=== PATIENT | male | born 1960 | race Caucasian/White ===

== ENCOUNTER 2017-05-06 07:41 | Emergency (ER) | payer MEDICARE ==
[~2017-05-06] VITALS: Ht 172.7 cm; Wt 140.6 kg
[~2017-05-06 07:41] MED LIST: ACET325T9 PO; ASCO500T2 PO; ASPI-482 PO; BUPR150T15 PO; CHOL10003 PO; CRESTOR10 MG PO; DIVA500T2 PO; DOCU-109 PO; GARL2000 PO; HYDR-2766 PO; IBUP200T43 PO; INSU100I13 SQ; INSU100V11 IJ; LOSA25TA4 PO; MECL25TA PO; METF-620 PO; METO-239 PO; MULT-246 PO; NIAC500T PO; NITR0.4T SL; OMEG10006 PO; POLY17PO29 PO; POTASSIUM CHLO10 MEQ PO; SPIR1TAB3 PO; TORS20TA PO; VENTOLIN HFA18 GM INH; [UNRECOGNIZED DRUG - CODE] MC
[2017-05-06 08:48] LABS: BILIRUBIN,URINE NEGATIVE (NEG); GLUCOSE,URINE NEGATIVE (NEG); NITRITE,URINE NEGATIVE (NEG); PH,URINE 5.5; PROTEIN,URINE NEGATIVE (NEG-TRACE); UROBILINOGEN,URINE 0.2 mg/dL (0.2 mg/dL)
[2017-05-06 08:57] LABS: BACTERIA,URINE 0 /HPF (0-FEW); RBC,URINE OCC /HPF (0-2); SQUAMOUS EPITHELIAL CELL,UR OCC /LPF; WBC,URINE OCC /HPF (0-4)
[2017-05-06 09:30] LABS: BASO % 0 % (0-3); EOS % 1 % (0-3); HEMOGLOBIN 14.8 g/dL (13.0-17.5); LYMPH # 2.5 x10^3/uL (1.0-4.8); LYMPH % 30 % (24-48); MEAN CORPUSCULAR HEMOGLOBIN 31 pg (25-35); MEAN CORPUSCULAR HGB CONC 35 g/dL (31-37); MEAN CORPUSCULAR VOLUME 88 fL (79-100); MONO % 10 % (0-9); NEUT % 58 % (31-73); PLATELET COUNT 286 x10^3/uL (140-400); RED CELL DISTRIBUTION WIDTH 13.5 % (11.5-14.5); WHITE BLOOD COUNT 8.2 x10^3/uL (4.0-11.0)
[2017-05-06 09:42] LABS: CALCIUM 8.3 mg/dL (8.5-10.1); CREATININE 0.8 mg/dL (0.7-1.3); GFR 98.9; POTASSIUM 3.7 mmol/L (3.5-5.1)
[2017-05-06 09:47] LABS: ALBUMIN 3.4 g/dL (3.4-5.0); TOTAL BILIRUBIN 0.3 mg/dL (0.2-1.0); TOTAL PROTEIN 6.8 g/dL (6.4-8.2)
[2017-05-06 09:52] VITALS: BP 134/76
--- NOTE | 2017-05-06 10:13 | PHYS DOC ---
Past Medical History Past Medical History: Diabetes-Type II, Hypertension, [place], Stroke, Other Additional Past Medical Histor: NEUROPATHY, PACEMAKER Past Surgical History: Coronary Bypass Surgery, Other Additional Past Surgical Histo: HERNIA, BACK SURGERY, LEFT FOOT SURGERY Alcohol Use: None Drug Use: None Adult General Chief Complaint Chief Complaint: URINARY FREQUENCY HPI HPI Patient is a 57 year old male who presents ambulatory to the ED with multiple complaints. He feels like he has been running to the bathroom every 5 minutes to urinate but only has a small amount. He has had a dry mouth. He has felt weak. He had a headache didn't take anything for it. He's had no vomiting. No fever or chills. He didn't take his morning medications today because he didn't know whether we would want him to. He did take his insulin last night. Patient has not had chronic problems with UTI. He thinks he had one a long time ago. Patient is diabetic but his blood sugar was just over 100 on arrival. Review of Systems Review of Systems Constitutional: Denies fever or chills [] Eyes: Denies change in visual acuity, redness, or eye pain [] HENT: Denies nasal congestion or sore throat Respiratory: Denies cough or shortness of breath [] Cardiovascular: Denies chest pain GI: Denies abdominal pain, nausea, vomiting, bloody stools or diarrhea [] : As in history of present illness Musculoskeletal: Denies back pain or joint pain [] Integument: Denies rash or skin lesions [] Neurologic: Denies headache, focal weakness or sensory changes [] Endocrine: Complains of dry mouth and polyuria Allergies Allergies Allergies Coded Allergies Type Severity Reaction Last Updated Verified No Known Drug Allergies 04/30/14 No Physical Exam Physical Exam Constitutional: Obese, unkempt 57-year-old male who is alert and appropriate, warm and dry HENT: Normocephalic, atraumatic, bilateral external ears normal, nose normal. [ ] Eyes: conjunctiva normal, no discharge. [] Neck: Normal range of motion, no stridor. [] Cardiovascular:Heart rate regular rhythm, no murmur [] Lungs & Thorax: Bilateral breath sounds clear to auscultation [] Abdomen: Bowel sounds normal, soft, no tenderness, no masses, no pulsatile masses. [] Skin: Warm, dry, no erythema, no rash. [] Back: No tenderness, no CVA tenderness. [] Extremities: No tenderness, no cyanosis, no clubbing, ROM intact, no edema. [] Neurologic: Alert and oriented X 3, normal motor function, normal sensory function, no focal deficits noted. [] Current Patient Data Vital Signs Vital Signs Date Time Temp Pulse Resp B/P (MAP) Pulse Ox O2 Delivery O2 Flow Rate FiO2 05/06/17 09:52 60 134/76 (95) 97 Room Air 05/06/17 09:22 17 05/06/17 07:50 98.1 98.1 Lab Values Laboratory Tests Test 05/06/17 08:10 05/06/17 08:35 05/06/17 09:20 Glucose (Fingerstick) 110 mg/dL (70-99) H Urine Collection Type Unknown Urine Color Yellow Urine Clarity Clear Urine pH 5.5 Urine Specific [place] 1.010 Urine Protein Negative mg/dL (NEG-TRACE) Urine Glucose (UA) Negative mg/dL (NEG) Urine Ketones (Stick) Negative mg/dL (NEG) Urine Blood Negative (NEG) Urine Nitrite Negative (NEG) Urine Bilirubin Negative (NEG) Urine Urobilinogen Dipstick 0.2 mg/dL (0.2 mg/dL) Urine Leukocyte Esterase Negative (NEG) Urine RBC Occ /HPF (0-2) Urine WBC Occ /HPF (0-4) Urine Squamous Epithelial Cells Occ /LPF Urine Bacteria 0 /HPF (0-FEW) Urine Mucus Slight /LPF White Blood Count 8.2 x10^3/uL (4.0-11.0) Red Blood Count 4.80 x10^6/uL (4.30-5.70) Hemoglobin 14.8 g/dL (13.0-17.5) Hematocrit 42.0 % (39.0-53.0) Mean Corpuscular Volume 88 fL (79-100) Mean Corpuscular Hemoglobin 31 pg (25-35) Mean Corpuscular Hemoglobin Concent 35 g/dL (31-37) Red Cell Distribution Width 13.5 % (11.5-14.5) Platelet Count 286 x10^3/uL (140-400) Neutrophils (%) (Auto) 58 % (31-73) Lymphocytes (%) (Auto) 30 % (24-48) Monocytes (%) (Auto) 10 % (0-9) H Eosinophils (%) (Auto) 1 % (0-3) Basophils (%) (Auto) 0 % (0-3) Neutrophils # (Auto) 4.8 x10^3uL (1.8-7.7) Lymphocytes # (Auto) 2.5 x10^3/uL (1.0-4.8) Monocytes # (Auto) 0.8 x10^3/uL (0.0-1.1) Eosinophils # (Auto) 0.1 x10^3/uL (0.0-0.7) Basophils # (Auto) 0.0 x10^3/uL (0.0-0.2) Sodium Level 140 mmol/L (136-145) Potassium Level 3.7 mmol/L (3.5-5.1) Chloride Level 101 mmol/L (98-107) Carbon Dioxide Level 30 mmol/L (21-32) Anion Gap 9 (6-14) Blood Urea Nitrogen 11 mg/dL (8-26) Creatinine 0.8 mg/dL (0.7-1.3) Estimated GFR (Cockcroft-Gault) 98.9 BUN/Creatinine Ratio 14 (6-20) Glucose Level 108 mg/dL (70-99) H Calcium Level 8.3 mg/dL (8.5-10.1) L Total Bilirubin 0.3 mg/dL (0.2-1.0) Aspartate Amino Transferase (AST) 16 U/L (15-37) Alanine Aminotransferase (ALT) 56 U/L (16-63) Alkaline Phosphatase 48 U/L (46-116) Total Protein 6.8 g/dL (6.4-8.2) Albumin 3.4 g/dL (3.4-5.0) Albumin/Globulin Ratio 1.0 (1.0-1.7) Laboratory Tests 05/06/17 09:20 Laboratory Tests 05/06/17 09:20 EKG EKG [] Radiology/Procedures Radiology/Procedures [] Course & Med Decision Making Course & Med Decision Making Pertinent Labs and Imaging studies reviewed. (See chart for details) 57-year-old male presents with the complaints of urinary frequency and dry mouth , he is a diabetic, however his blood sugar is normal here today. Labs, urinalysis unrevealing as to the cause of his complaints. I discussed with the patient that we are not finding any serious cause of his symptoms and I like to him to continue his medication as ordered. He is agreeable to discharge. See instructions for plan. [] Dragon Disclaimer Dragon Disclaimer This electronic medical record was generated, in whole or in part, using a voice recognition dictation system. Departure Departure Impression: Primary Impression: Urinary frequency Disposition: HOME, SELF-CARE Condition: STABLE Referrals: NIRANJAN PARMAR R[facility] AND [employer]ST ANALYST (PCP) Additional Instructions: Today, urine test did not show any infection and blood tests were normal. Continue to take your prescribed medications. Drink plenty of fluids. If your symptoms continue, see your primary care doctor for recheck. JEWEL SANTOS MD May 06, 2017 10:13
== END 2017-05-06 10:18 | disposition home or self-care (01) ==
LOC: ER 07:41
DX: R35.0 Frequency of micturition (principal); R68.2 Dry mouth, unspecified; E66.9 Obesity, unspecified; R53.1 Weakness; R51 Headache; E11.40 Type 2 diabetes mellitus with diabetic neuropathy, unspecified; I25.2 Old myocardial infarction; I10 Essential (primary) hypertension; Z95.1 Presence of aortocoronary bypass graft; Z79.4 Long term (current) use of insulin; Z95.0 Presence of cardiac pacemaker; Z68.1 Body mass index [BMI] 19.9 or less, adult; Z86.73 Personal history of transient ischemic attack (TIA), and cerebral infarction without residual deficits
CPT/HCPCS: 36415; 80053; 81001; 82962; 85025; 99284

== ENCOUNTER 2019-04-09 13:21 | Emergency (ER) | payer MEDICARE, OTHER ==
[~2019-04-09] VITALS: Ht 175.3 cm; Wt 139.3 kg
[~2019-04-09 13:21] MED LIST changes: -HYDR-2766 PO; +HYDR-2769 PO; -IBUP200T43 PO; +IBUP200T44 PO; -LOSA25TA4 PO; +LOSA25TA54 PO; -METF-620 PO; +METF10007 PO; +POTA10TA12 PO; -POTASSIUM CHLO10 MEQ PO
--- NOTE | 2019-04-09 14:35 | NUR ---
Pt requesting/received urinal.
--- NOTE | 2019-04-09 15:23 | RAD ---
AP view of the pelvis and two-view study right hip Clinical indications: Right hip pain for one week. FINDINGS: Hip joints are symmetric. No significant arthritic change is evident. No acute fracture or dislocation or lytic process evident. No diastases of the symphysis pubis or either SI joint is seen. IMPRESSION: No significant osseous abnormality. Electronically signed by: Gaudencio Richter MD (04/09/2019 3:20 PM) [id number]
[2019-04-09] MEDS ORDERED: KETOROLAC 60 MG/2 ML VIAL. IM ONE (16:15)
[2019-04-09] MEDS ORDERED: methylPREDNISolone SOD SUCC PF 125 MG/2 ML VIAL. IM ONE (16:45)
[2019-04-09] MEDS ORDERED: PRED20TA PO (16:56)
[2019-04-09] MEDS ORDERED: TRAM50TA PO (16:56)
--- NOTE | 2019-04-09 16:57 | PHYS DOC ---
Past Medical History Past Medical History: CVA, Diabetes-Type II, High Cholesterol, Hypertension, [place], Stroke, Other Additional Past Medical Histor: NEUROPATHY Past Surgical History: Coronary Bypass Surgery, Pacemaker, Other Additional Past Surgical Histo: HERNIA, BACK SURGERY, LEFT FOOT SURGERY, CARPAL TUNNEL, NECK Alcohol Use: None Drug Use: None Adult General Chief Complaint Chief Complaint: HIP PAIN HPI HPI Patient is a 58 year old male presented ER today for evaluation of right hip pain, radiating to his right knee. Patient said the pain worse when he sat on his buttock. Patient said he was trying to pull some grasses of the ground about a week ago then later having pain then. Denied any trauma. Milka denies any bowel or bladder incontinence. He denies any fever, no back pain. Review of Systems Review of Systems Constitutional: Denies fever or chills [] Eyes: Denies change in visual acuity, redness, or eye pain [] HENT: Denies nasal congestion or sore throat [] Respiratory: Denies cough or shortness of breath [] Cardiovascular: No additional information not addressed in HPI [] GI: Denies abdominal pain, nausea, vomiting, bloody stools or diarrhea [] : Denies dysuria or hematuria [] Musculoskeletal: Denies back pain, POSITIVE FOR RIGHT SIDE HIP PAIN Integument: Denies rash or skin lesions [] Neurologic: Denies headache, focal weakness or sensory changes [] Endocrine: Denies polyuria or polydipsia [] All other systems were reviewed and found to be within normal limits, except as documented in this note. Current Medications Current Medications Current Medications Medications (Trade) Dose Ordered Sig/[facility] Start Time Stop Time Status Last Admin Dose Admin Ketorolac Tromethamine (Toradol Im) 60 mg 1X ONCE 04/09/19 16:15 04/09/19 16:16 DC 04/09/19 16:20 60 MG Methylprednisolone Sodium Succinate (SOLU-Medrol 125MG VIAL) 125 mg 1X ONCE 04/09/19 16:45 04/09/19 16:46 DC 04/09/19 16:21 125 MG Allergies Allergies Allergies Coded Allergies Type Severity Reaction Last Updated Verified No Known Drug Allergies 04/30/14 No Physical Exam Physical Exam Constitutional: Well developed, well nourished, no acute distress, non-toxic appearance. [] HENT: Normocephalic, atraumatic, bilateral external ears normal, nose normal. [] Eyes: PERRLA, EOMI, conjunctiva normal, no discharge. [] Neck: Normal range of motion, no tenderness, supple, no stridor. [] Cardiovascular:Heart rate regular rhythm, no murmur [] Abdomen: Bowel sounds normal, soft, no tenderness, no masses, no pulsatile masses. [] Skin: Warm, dry, no erythema, no rash. [] Back: No tenderness, no CVA tenderness. [] Extremities: No tenderness, no cyanosis, no clubbing, ROM intact, no edema. [] Neurologic: Alert and oriented X 3, normal motor function, normal sensory function, no focal deficits noted. [] Psychologic: Affect normal, judgement normal, mood normal. [] Current Patient Data Vital Signs Vital Signs Date Time Temp Pulse Resp B/P (MAP) Pulse Ox O2 Delivery O2 Flow Rate FiO2 04/09/19 14:26 98.4 60 20 135/63 (87) 97 Room Air 98.4 EKG EKG [] Radiology/Procedures Radiology/Procedures [][facility] [address] [place] [address] IMAGING REPORT Signed PATIENT: JANESSA MCDOWELL ACCOUNT: [id number] : 1960 LOCATION: ER AGE: 58 SEX: M EXAM STATUS: REG ER ORD. PHYSICIAN: WILIAN ALFARO DO REASON: rt hip pain for 1 wk, PT unable to handle laying, images done upright PROCEDURE: HIP RIGHT 2V WITH PELVIS AP view of the pelvis and two-view study right hip Clinical indications: Right hip pain for one week. FINDINGS: Hip joints are symmetric. No significant arthritic change is evident. No acute fracture or dislocation or lytic process evident. No diastases of the symphysis pubis or either SI joint is seen. IMPRESSION: No significant osseous abnormality. Electronically signed by: Carolyn Richter MD (04/09/2019 3:20 PM) [facility] DICTATED and SIGNED BY: CAROLYN RICHTER MD DATE: 04/09/19 7600 Course & Med Decision Making Course & Med Decision Making Pertinent Labs and Imaging studies reviewed. (See chart for details) [] Dragon Disclaimer Dragon Disclaimer This electronic medical record was generated, in whole or in part, using a voice recognition dictation system. Departure Departure Impression: Primary Impression: Acute sciatica Disposition: HOME, SELF-CARE Condition: STABLE Referrals: PAULINO JOY MD (PCP) FOLLOW UP WITH YOUR DOCTOR FOR REEVALUATION NEXT SUNDAY Patient Instructions: Sciatica with Rehab-SportsMed Scripts Prednisone (PREDNISONE) 20 Mg Tablet 1 TAB PO DAILY, #7 TAB Prov: WILIAN ALFARO DO 04/09/19 Tramadol Hcl (TRAMADOL HCL) 50 Mg Tablet 50 MG PO Q6HRS PRN for PAIN, #20 TAB Prov: WILIAN ALFARO DO 04/09/19 WILIAN ALFARO DO Apr 09, 2019 16:56
[2019-04-09 17:19] VITALS: BP 125/72
== END 2019-04-09 17:25 | disposition home or self-care (01) ==
LOC: ER 13:21
DX: M54.31 Sciatica, right side (principal); M25.551 Pain in right hip; M25.561 Pain in right knee; E11.40 Type 2 diabetes mellitus with diabetic neuropathy, unspecified; E78.00 Pure hypercholesterolemia, unspecified; I10 Essential (primary) hypertension; I25.2 Old myocardial infarction; Z86.73 Personal history of transient ischemic attack (TIA), and cerebral infarction without residual deficits; Z95.1 Presence of aortocoronary bypass graft; Z95.0 Presence of cardiac pacemaker; Z98.890 Other specified postprocedural states
CPT/HCPCS: 73502; 96372; 99284; J1885; J2930

== ENCOUNTER 2019-12-22 18:54 | Emergency (ER) | payer MEDICARE, OTHER ==
[~2019-12-22] VITALS: Ht 172.7 cm; Wt 139.0 kg
[~2019-12-22 18:54] MED LIST changes: -NITR0.4T SL; +NITR0.4T24 SL; +PRED20TA PO; +TRAM50TA PO
[2019-12-22 19:55] VITALS: BP 132/59
--- NOTE | 2019-12-22 20:20 | RAD ---
Three-view right shoulder radiographs 12/22/2019 CLINICAL HISTORY: Injury to the right shoulder after lifting trash 3 days ago. AP internal and external rotation and transscapular digital radiographs of the right shoulder were obtained. A pacemaker overlies the right anterior chest. Moderate to severe degenerative changes are seen involving the right glenohumeral joint. Moderate degenerative changes are seen involving the right AC joint. No fracture or dislocation is seen. The patient is post median sternotomy. IMPRESSION: Degenerative changes are seen involving the right shoulder as discussed above. No acute osseous abnormality is seen. Electronically signed by: Travis Downing MD (12/22/2019 8:17 PM) [id number]
[2019-12-22] MEDS ORDERED: DICL100G18 TP (20:32)
[2019-12-22] MEDS ORDERED: METH4TAB2 PO (20:32)
[2019-12-22] MEDS ORDERED: CYCL10TA2 PO (20:32)
--- NOTE | 2019-12-22 20:32 | PHYS DOC ---
Past Medical History Past Medical History: CVA, Diabetes-Type II, High Cholesterol, Hypertension, [place], Stroke, Other Additional Past Medical Histor: NEUROPATHY (EDE HARRIS APRN) Past Surgical History: Coronary Bypass Surgery, Pacemaker, Other Additional Past Surgical Histo: HERNIA, BACK SURGERY, LEFT FOOT SURGERY, CARPAL TUNNEL, NECK (EDE HARRIS APRN) Smoking Status: Former Smoker Alcohol Use: None Drug Use: None (EDE HARRIS APRN) Attending Signature I have participated in the care of this patient and I have reviewed and agree with all pertinent clinical information above including history, exam, and recommendations. (MACI SANCHEZ MD) Adult General Chief Complaint Chief Complaint: SHOULDER INJURY HPI HPI Patient is a 59 year old medical presents with 5 out of 10 sharp intermittent right shoulder pain, symptoms began 4 days ago, he reports he was lifting heavy trash when pain began. Patient reports symptoms are worse on range of motion. (EDE HARRIS APRN) Review of Systems Review of Systems Constitutional: Denies fever or chills [] Musculoskeletal: Reports right shoulder pain Integument: Denies rash or skin lesions [] Neurologic: Denies headache, focal weakness or sensory changes [] All other systems were reviewed and found to be within normal limits, except as documented in this note. (EDE HARRIS APRN) Allergies Allergies Allergies Coded Allergies Type Severity Reaction Last Updated Verified No Known Drug Allergies 04/30/14 No (MACI SANCHEZ MD) Physical Exam Physical Exam Constitutional: Well developed, well nourished, no acute distress, non-toxic appearance. [] Skin: Warm, dry, no erythema, no rash. [] Back: No tenderness, no CVA tenderness. [] Extremities: Right shoulder with no obvious deformity. No tenderness on exam. Full range of motion to the right shoulder. Neurovascular exam is intact to the right upper extremity. +2 right radial pulse. Cap refill less than 2 seconds the right fingers. Neurologic: Alert and oriented X 3, normal motor function, normal sensory function, no focal deficits noted. [] Psychologic: Affect normal, judgement normal, mood normal. [] (EDE HARRIS APRN) Current Patient Data Vital Signs Vital Signs Date Time Temp Pulse Resp B/P (MAP) Pulse Ox O2 Delivery O2 Flow Rate FiO2 12/22/19 19:55 97.5 64 19 132/59 (83) 98 Room Air 97.5 (MACI SANCHEZ MD) EKG EKG [] (EDE HARRIS APRN) Radiology/Procedures Radiology/Procedures []PROCEDURE: SHOULDER 2+V RIGHT Three-view right shoulder radiographs 12/22/2019 CLINICAL HISTORY: Injury to the right shoulder after lifting trash 3 days ago. AP internal and external rotation and transscapular digital radiographs of the right shoulder were obtained. A pacemaker overlies the right anterior chest. Moderate to severe degenerative changes are seen involving the right glenohumeral joint. Moderate degenerative changes are seen involving the right AC joint. No fracture or dislocation is seen. The patient is post median sternotomy. IMPRESSION: Degenerative changes are seen involving the right shoulder as discussed above. No acute osseous abnormality is seen. Electronically signed by: Travis Downing MD (12/22/2019 8:17 PM) [id number] DICTATED and SIGNED BY: TRAVIS DOWNING MD DATE: 12/22/192016 (EDE HARRIS APRN) Course & Med Decision Making Course & Med Decision Making Pertinent Labs and Imaging studies reviewed. (See chart for details) This is a 59-year-old male patient presenting to the ED today with right shoulder pain that began 4 days ago while lifting heavy trash. Right shoulder x- rays are negative for any acute findings. Discharged home. Follow-up with open one to 2 weeks. Ice elevation encouraged. (EDE HARRIS APRN) Dragon Disclaimer Dragon Disclaimer This electronic medical record was generated, in whole or in part, using a voice recognition dictation system. (EDE HARRIS APRN) Departure Departure Impression: Primary Impression: Right shoulder strain Disposition: 01 HOME, SELF-CARE Condition: STABLE Referrals: PAULINO JOY MD (PCP) TERRELL YU MD follow up in 1-2 weeks Patient Instructions: Shoulder Exercises, Generic, SportsMed, Shoulder Sprain Additional Instructions: Your right shoulder x-rays are negative for any acute findings. Try to ice and elevate the affected extremity. Take the prescribed medications as ordered. Follow-up with your own orthopedic doctor the provided orthopedic doctor in one week Scripts Diclofenac Sodium (VOLTAREN) 100 Gm Gel..gram. 1 GM TP QID for pain, #1 EACH 0 Refills apply to affected area(s) Prov: EDE HARRIS ELSY 12/22/19 Cyclobenzaprine Hcl (CYCLOBENZAPRINE HCL) 10 Mg Tablet 1 TAB PO TID, #30 TAB Prov: EDE HARRIS ELSY 12/22/19 Methylprednisolone (MEDROL) 4 Mg Tab.ds.pk 1 PKG PO UD, #1 PKG Prov: EDE HARRIS ELSY 12/22/19 Problem Qualifiers Primary Impression: Right shoulder strain Encounter type: initial encounter Qualified Codes: S46.911A - Strain of unspecified muscle, fascia and tendon at shoulder and upper arm level, right arm, initial encounter CARLOSEDE QUINONES ELSY Dec 22, 2019 20:32 MACI SANCHEZ MD Dec 23, 2019 05:07
== END 2019-12-22 20:45 | disposition home or self-care (01) ==
LOC: ER 18:54
DX: S46.911A Strain of unspecified muscle, fascia and tendon at shoulder and upper arm level, right arm, initial encounter (principal); E11.40 Type 2 diabetes mellitus with diabetic neuropathy, unspecified; I10 Essential (primary) hypertension; E78.00 Pure hypercholesterolemia, unspecified; I25.2 Old myocardial infarction; Z86.73 Personal history of transient ischemic attack (TIA), and cerebral infarction without residual deficits; Z87.891 Personal history of nicotine dependence; Z95.1 Presence of aortocoronary bypass graft; Z95.0 Presence of cardiac pacemaker; X50.0XXA Overexertion from strenuous movement or load, initial encounter; Y93.89 Activity, other specified; Y92.89 Other specified places as the place of occurrence of the external cause; Y99.8 Other external cause status
CPT/HCPCS: 73030; 99284

== ENCOUNTER → 2020-04-27 | Outpatient (CLI) | payer OTHER ==
[~2020-04-27] MED LIST changes: -ASCO500T2 PO; +ASCO500T4 PO; +ATOR40TA59 PO; +CYCL10TA2 PO; +DICL100G54 TP; +DULO60CA6 PO; +FURO40TA4 PO; +GABA600T7 PO; +METH4TAB2 PO; +QUET400T52 PO; +TAMS0.4C97 PO
--- NOTE | 2020-04-27 11:36 | EKG ---
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
--- NOTE | 2020-04-27 17:16 | RAD ---
Two-view chest dated 04/27/2020. No comparison available. CLINICAL INDICATION: Preop evaluation for shoulder surgery. FINDINGS: PA and lateral views obtained. Heart and mediastinal contours within normal limits. There is a dual lead right subclavian pacer in place. The patient is status post median sternotomy. Lungs are clear. No consolidation or pleural effusion. No pneumothorax. IMPRESSION: No acute radiographic abnormality. Electronically signed by: Omero Elizabeth MD (04/27/2020 5:13 PM) [facility]
== END | disposition home or self-care (01) ==
LOC: SURGPAT 09:43
PROVIDERS: ATTEND Orthopaedic Surgery
DX: Z01.818 Encounter for other preprocedural examination (principal); M19.111 Post-traumatic osteoarthritis, right shoulder; I45.10 Unspecified right bundle-branch block
CPT/HCPCS: 36415; 71046; 87641; 93005

== ENCOUNTER → 2020-05-07 | Outpatient (CLI) | payer OTHER | LOC: LAB 12:54 | PROVIDERS: ATTEND Orthopaedic Surgery | DX: Z01.818 Encounter for other preprocedural examination (principal); Z11.59 Encounter for screening for other viral diseases; M19.111 Post-traumatic osteoarthritis, right shoulder | CPT/HCPCS: U0003-CS ==

== ENCOUNTER 2020-05-11 07:54 | Inpatient (IN) | payer OTHER ==
[2020-05-11] VITALS (8 sets, daily range): BP systolic 93–148; BP diastolic 37–82
[~2020-05-11] VITALS: Ht 172.7 cm; Wt 141.5 kg
[~2020-05-11 07:54] MED LIST changes: +ACETAMINOPHEN 500 MG TABLET PO PRN; +GABAPENTIN 300 MG CAPSULE. PO PRN; +HYDROmorphone 2 MG/ML VIAL IV PRN; +IV RINGERS,LACTATED 1000ML 1,000 ML IV SCH; +LIDOCAINE 1% PF 2 ML VIAL. ID PRN; +MELOXICAM 7.5 MG TABLET PO PRN; +MORPHINE SULFATE 2 MG/ML VIAL. IV PRN; +ONDANSETRON PF 4 MG/2 ML VIAL. IV PRN; +PROCHLORPERAZINE 10 MG/2 ML VIAL. IV PRN; +ceFAZolin SODIUM 3 GM in IV D5W 100 ML IV PRN; +fentaNYL PF VIAL 100 MCG/2 ML VIAL IV PRN
[2020-05-11] MEDS ORDERED: PROPOFOL 10 MG/ML (20ML) VIAL. IV ONE (08:38)
[2020-05-11] MEDS ORDERED: FAMOTIDINE 20 MG/2 ML VIAL ONE (08:38)
[2020-05-11] MEDS ORDERED: LIDOCAINE 2% PF 5 ML VIAL. ONE (08:38)
[2020-05-11] MEDS ORDERED: ROCURONIUM 50 MG/5 ML VIAL. ONE (08:38)
[2020-05-11] MEDS ORDERED: DEXAMETHASONE SOD PHOS 4 MG/ML VIAL ONE (08:38)
[2020-05-11] MEDS ORDERED: ONDANSETRON PF 4 MG/2 ML VIAL. ONE (08:38)
[2020-05-11] MEDS ORDERED: fentaNYL PF VIAL 100 MCG/2 ML VIAL ONE (08:39)
[2020-05-11] MEDS ORDERED: BUPIVACAINE MPF 0.5% 30 ML VIAL. ONE ×2 (09:03→12:25)
[2020-05-11] MEDS ORDERED: MIDAZOLAM HCL/PF 2 MG/2 ML VIAL. ONE (09:03)
[2020-05-11] MEDS ORDERED: INSULIN LISPRO 100 UNIT/ML 3ML VIAL for OP,RR ONLY. SQ PRN (09:15)
[2020-05-11] MEDS ORDERED: INSULIN LISPRO 100 UNIT/ML 3ML VIAL for OP,RR ONLY. SQ ONE (09:15)
--- NOTE | 2020-05-11 10:18 | HP ---
ADMIT DATE: 05/11/2020 PREOPERATIVE HISTORY AND PHYSICAL CHIEF COMPLAINT: Right shoulder pain and weakness. HISTORY OF PRESENT ILLNESS: The patient is a 60-year-old male with severe degenerative changes in his right shoulder and got really only 2 weeks of reasonable relief from intraarticular corticosteroid injection back in early January and pain is right back to where it was before. The shoulder displays painful catching, difficulty lifting it away from his body, much less with any resistance and it hurts lying on it at night. He has difficulty sleeping and we had previously discussed definitive options. PAST MEDICAL HISTORY: Significant for previous stroke, coronary bypass, diabetes, hypertension, neuropathy, depression. PAST SURGICAL HISTORY: Right rotator cuff repair in the past, coronary bypass, pacemaker, left foot surgery, back surgery, carpal tunnel surgery and cervical spine surgery. FAMILY HISTORY: Diabetes and hypertension in his mom who is and diabetes in his dad who is . SOCIAL HISTORY: He is a former smoker, quit greater than 10 years ago. Denies alcohol or drug use. MEDICATIONS: List is reviewed. ALLERGIES: He has no known drug allergies. REVIEW OF SYSTEMS: Denies any chest pain, shortness of breath, febrile illness. Other constitutional symptoms is positive for the severe shoulder pain, catching and denies any radiating type pain. PHYSICAL EXAMINATION: VITAL SIGNS: Per admission sheet. HEENT: Atraumatic, normocephalic. HEART: Regular rate and rhythm. LUNGS: Clear to auscultation bilaterally. EXTREMITIES: Examination of the right shoulder reveals significant crepitus with no gross instability. Rotator cuff strength is very compromised. He is very weak in all planes and cannot lift his arm more than about 30 degrees elevation in any plane. He has no parascapular winging or acromioclavicular joint tenderness. Pain with passive or active range of motion in a very limited fashion. Normal examination of the contralateral shoulder, bilateral elbows and wrists. ASSESSMENT: 1. Post-traumatic osteoarthritis, right shoulder. 2. History of previous repair of right rotator cuff. 3. Findings of severe weakness and in practical terms pseudoparalysis. IMPRESSION: Posttraumatic osteoarthritis with likely rotator cuff compromise. TREATMENT PLAN: I had gone over with him the possibility of a shoulder arthroplasty and what would be required in terms of a conventional arthroplasty with an intact rotator cuff versus a reverse shoulder arthroplasty if there is a rotator cuff compromise. We went through the possibility of instability, infection, nerve or blood vessel damage, continued pain, premature wear or loosening, medical or other anesthetic complications among others and the long recovery process typical associated with this. All his questions were answered. He wishes to proceed with surgical evaluation and treatment, which will occur today with at least overnight observation postoperatively. TERRELL YU MD DR: HARI/carter JOB#: [id number] / [id number]
[2020-05-11] MEDS ORDERED: SEVOFLURANE > 120 MINUTES. IH ONE (11:51)
[2020-05-11] MEDS ORDERED: NEOSTIGMINE METHYLSULFATE 5 MG/5 ML SYRINGE. ONE (11:56)
[2020-05-11] MEDS ORDERED: GLYCOPYRROLATE 1 MG/5 ML VIAL. ONE (11:57)
[2020-05-11] MEDS ORDERED: ACETAMINOPHEN 325 MG TABLET. PO PRN (13:15)
[2020-05-11] MEDS ORDERED: HYDROmorphone 2 MG/ML VIAL IV PRN (13:15)
[2020-05-11] MEDS ORDERED: 0.9 % SODIUM CHLORIDE 10 ML DISP.SYRIN. IV PRN (13:15)
[2020-05-11] MEDS ORDERED: HYDROcodone/APAP 10/325 1 TAB TABLET PO PRN (13:15)
[2020-05-11] MEDS ORDERED: oxyCODONE/APAP 7.5/325 1 TAB TABLET PO PRN (13:15)
[2020-05-11] MEDS ORDERED: DEXTROSE 50% 25 GM / 50ML DISP.SYRIN. IV PRN (13:15)
[2020-05-11] MEDS ORDERED: NITROGLYCERIN SUBLINGUAL 0.4 MG BOTTLE OF 25. SL PRN (13:15)
[2020-05-11] MEDS ORDERED: ZOLPIDEM 5 MG TABLET. PO PRN (13:15)
[2020-05-11] MEDS ORDERED: NALOXONE 0.4 MG/ML VIAL. IV PRN (13:15)
[2020-05-11] MEDS ORDERED: traMADol 50 MG TABLET PO PRN (13:15)
[2020-05-11] MEDS ORDERED: CALCIUM CARBONATE 500 MG TAB.CHEW PO PRN (13:15)
[2020-05-11] MEDS ORDERED: HYDROcodone/APAP 7.5/325MG 1 TAB TABLET PO PRN (13:15)
[2020-05-11] MEDS ORDERED: PROCHLORPERAZINE 5 MG TABLET. PO PRN (13:15)
--- NOTE | 2020-05-11 14:05 | RAD ---
EXAM: SHOULDER 2+V RIGHT. HISTORY: Arthroplasty. COMPARISON: 12/22/2019. FINDINGS: A right reverse total shoulder arthroplasty is in expected alignment. Skin david and soft tissue gas are noted. Acromioclavicular osteoarthritis is mild for patient age. No fractures are identified. A right pacemaker and median sternotomy wires are partially visualized. IMPRESSION: 1. Right reverse total shoulder arthroplasty in expected alignment. Electronically signed by: Aroldo Ruelas MD (05/11/2020 2:01 PM) [id number]
--- NOTE | 2020-05-11 14:14 | PDOC4 ---
Operative Note Operative Note Date of surgery: 05/11/2020 Preoperative diagnosis: Degenerative joint disease right shoulder with history of previous rotator cuff repair and current findings of pseudoparalysis Postoperative diagnosis: Degenerative joint disease right shoulder with severe biceps tendinopathy and compromise of supraspinatus tendon Operative procedure: Right reverse shoulder arthroplasty and biceps tenodesis Surgeon: Alex Licensing Representative: Jose Luis Clancy nurse practitioner Anesthesia: General plus scalene block Estimated blood loss: 50 cc Complications: None Operative indications please see my preoperative history and physical as well as previous orthopedic clinic notes for detailed operative indications and indicate that he has severe limiting degenerative joint disease of the right shoulder a previous history of rotator cuff repair and current findings of pseudoparalysis of the shoulder which lead me to suspect strongly incompetence of the rotator cuff and we talked about assessing the shoulder and deciding between conventional shoulder arthroplasty versus reverse shoulder arthroplasty depending on the condition. We had gone through risks benefits postoperative course of both the possibility of infection premature wear or loosening continued pain nerve or blood vessel damage medical or other anesthetic complications among others all his questions were answered and he wishes to proceed with surgical evaluation and treatment. Operative text: Patient was identified procedure verified patient placed in the supine position on the operating table. After adequate amounts of general anesthesia plus a pre-existing scalene block were obtained the right shoulder was prepped and draped in standard sterile fashion and after timeout was performed patient procedure identified and verified a deltopectoral incision was made cephalic vein and deltoid were taken laterally clavipectoral fascia was taken down and the subscapularis was divided at its insertion and tagged and from the anterior joint capsule. She was noted to have severe tendinopathy of the biceps tendon which was tenodesed just above the pectoralis in the groove and the remainder of the biceps removed the subscap was noted to be intact but supraspinatus was compromised and I elected to proceed with a reverse shoulder arthroplasty. Reaming carried out up to a size 18 cut was made in between 0 and 20 degrees of version using the cutting guide an 18 mm trial humeral component was placed and capsular release was carried out the glenoid was exposed drilled reamed and drilled to increase the bleeding for any sclerosis present. A standard 15 mm baseplate was placed with locking screws placed down into the scapular spine as well as to the base of the coracoid with excellent fixation on both a 40 mm glenoid component was impacted in place thoroughly engage the Singleton taper and trial fitting was carried out with a +6 non-retentive liner which provided excellent deltoid tension and full range of motion. Trial components were removed thorough irrigation carried out normal saline solution a size 18 reverse shoulder humeral component was assembled with a +6 standard liner and was impacted in place and reduced with equivalent range of motion and stability noted. Began to radiation carried out normal saline solution subscapularis was repaired with #5 max braid suture fascia and subcutaneous layers were closed with #2-0 Vicryl suture skin closed with david sterile dressings were applied patient was returned to recovery room in stable condition having tolerated procedure well. Jose Luis Clancy nurse practitioner was present for the procedure assisted in the prepping draping retraction closure and dressings TERRELL YU MD May 11, 2020 14:14
[2020-05-11] MEDS ORDERED: ALBUTEROL SULFATE 2.5 MG/3 ML NEBU. NEB PRN (15:15)
[2020-05-11] MEDS: IV NORMAL SALINE 1000ML BAG 1,000 ML IV SCH (15:20)
--- NOTE | 2020-05-11 16:21 | NUR ---
received from recovery. he is alert and oriented x4. he is rating his pain 4-5. He has good motion sensation and pulses bilateral upper extremities. states that he fell 2 days ago in the shower. dressing to shoulder is dry there is some shadowing anterior bicep. right arm remains in sling and elevated on pillow. patient is very talkative.
[2020-05-11] MEDS: ceFAZolin SODIUM 3 GM in IV DEXTROSE 5% 100ML 100 ML IV SCH ×2 (16:30→22:30)
[2020-05-11] MEDS: SENNOSIDES/DOCUSATE 8.6/50MG TABLET. PO SCH (16:49)
[2020-05-11] MEDS: DULoxetine HCL 30 MG CAPSULE.DR PO SCH (16:49)
[2020-05-11] MEDS: LOSARTAN POTASSIUM 25 MG TABLET. PO SCH (16:50)
[2020-05-11] MEDS: FUROSEMIDE 40 MG TABLET. PO SCH (16:50)
[2020-05-11] MEDS: TAMSULOSIN 0.4 MG CAP.ER.24H. PO SCH (16:50)
[2020-05-11] MEDS: METOPROLOL SUCC 24HR ER 25 MG TAB.ER.24H. PO SCH (16:50)
[2020-05-11] MEDS: oxyCODONE/APAP 5/325 1 TAB TABLET PO PRN (16:51)
[2020-05-11] MEDS: CELECOXIB 100 MG CAPSULE. PO SCH (20:50)
[2020-05-11] MEDS: OMEGA-3 FATTY ACIDS/FISH OIL 1,000 MG CAPSULE. PO SCH (20:50)
[2020-05-11] MEDS: QUEtiapine 100 MG TABLET. PO SCH (20:51)
[2020-05-11] MEDS: GABAPENTIN 400 MG CAPSULE. PO SCH (20:51)
[2020-05-11] MEDS: ATORVASTATIN CALCIUM 40 MG TABLET. PO SCH (20:51)
[2020-05-11] MEDS: DIVALPROEX DELAYED RELEASE 500 MG TABLET.DR. PO SCH (20:51)
[2020-05-11] MEDS: IV DEXTROSE 5 %-0.45 % NACL 1,000 ML IV SCH ×2 (20:54→23:04)
[2020-05-11] MEDS ORDERED: INSULIN GLARGINE SYRINGE. SQ SCH (21:00)
[2020-05-12 00:09] VITALS: BP 111/52
[2020-05-12 02:55] VITALS: BP 130/65
[2020-05-12] MEDS: ceFAZolin SODIUM 3 GM in IV DEXTROSE 5% 100ML 100 ML IV SCH (04:30)
[2020-05-12] MEDS ORDERED: MAGNESIUM HYDROXIDE 2,400 MG/30 ML ORAL.SUSP. PO PRN (06:00)
[2020-05-12 07:38] VITALS: BP 132/65
[2020-05-12] MEDS: DIVALPROEX DELAYED RELEASE 500 MG TABLET.DR. PO SCH ×2 (08:30→20:46)
[2020-05-12] MEDS: GABAPENTIN 400 MG CAPSULE. PO SCH ×2 (08:30→20:48)
[2020-05-12] MEDS: OMEGA-3 FATTY ACIDS/FISH OIL 1,000 MG CAPSULE. PO SCH ×3 (08:31→20:49)
[2020-05-12] MEDS: CELECOXIB 100 MG CAPSULE. PO SCH ×2 (08:31→20:46)
[2020-05-12] MEDS: SENNOSIDES/DOCUSATE 8.6/50MG TABLET. PO SCH (08:31)
[2020-05-12] MEDS: DULoxetine HCL 30 MG CAPSULE.DR PO SCH (08:31)
[2020-05-12] MEDS: oxyCODONE/APAP 5/325 1 TAB TABLET PO PRN ×3 (08:32→20:49)
[2020-05-12] MEDS: TAMSULOSIN 0.4 MG CAP.ER.24H. PO SCH (08:35)
[2020-05-12] MEDS: LOSARTAN POTASSIUM 25 MG TABLET. PO SCH (08:35)
[2020-05-12] MEDS ORDERED: NON FORMULARY ITEM (Multivitamin (Multi-Vitamin Daily) 1 EACH) PO SCH (09:00)
[2020-05-12] MEDS ORDERED: ASPIRIN ENTERIC COATED 81 MG TABLET.DR. PO SCH (09:00)
[2020-05-12] MEDS ORDERED: MULTIVITAMIN with MINERAL TABLET. PO SCH (09:00)
[2020-05-12] MEDS: IV DEXTROSE 5 %-0.45 % NACL 1,000 ML IV SCH (09:04)
--- NOTE | 2020-05-12 09:10 | PDOC ---
ORTHO PROGRESS NOTES DATE: 05/12/20 TIME: 09:02 Subjective Somewhat painful but doing okay and would like to go home. Post-op Day: 1 Procedure Right reverse total shoulder arthroplasty with biceps tenodesis. Vitals Vital Signs Date Time Temp Pulse Resp B/P (MAP) Pulse Ox O2 Delivery O2 Flow Rate FiO2 05/12/20 08:35 60 126/59 05/12/20 08:32 Room Air 05/12/20 07:38 97.3 20 95 97.3 05/12/20 02:55 2.0 Labs Laboratory Tests Test 05/11/20 08:36 05/11/20 14:48 05/11/20 17:28 05/11/20 21:02 Glucose (Fingerstick) 129 mg/dL (70-99) 130 mg/dL (70-99) 168 mg/dL (70-99) 149 mg/dL (70-99) Test 05/12/20 07:07 Glucose (Fingerstick) 140 mg/dL (70-99) Laboratory Tests Test 05/11/20 14:48 05/11/20 17:28 05/11/20 21:02 05/12/20 07:07 Glucose (Fingerstick) 130 mg/dL (70-99) 168 mg/dL (70-99) 149 mg/dL (70-99) 140 mg/dL (70-99) Notes Awake and alert sitting up eating breakfast. Assessment and Plan Postop day #1 status post right reverse total shoulder arthroplasty with biceps tenodesis. Motor and sensation intact distally at the fingers wrist and elbow. Dressing has 1 small area of dried drainage. Continue physical therapy. May go home this afternoon. CELINE CARDONA APRN May 12, 2020 09:10
[2020-05-12 10:55] VITALS: BP 113/53
[2020-05-12] MEDS: FUROSEMIDE 40 MG TABLET. PO SCH (10:55)
[2020-05-12] MEDS: METOPROLOL SUCC 24HR ER 25 MG TAB.ER.24H. PO SCH (10:55)
[2020-05-12] MEDS: IV NORMAL SALINE 1000ML BAG 1,000 ML IV SCH (13:04)
[2020-05-12 14:58] VITALS: BP 120/61
[2020-05-12] MEDS ORDERED: BISACODYL 10 MG SUPP.RECT. PR PRN (16:00)
[2020-05-12 19:00] VITALS: BP 132/53
[2020-05-12] MEDS: ATORVASTATIN CALCIUM 40 MG TABLET. PO SCH (20:46)
[2020-05-12] MEDS: QUEtiapine 100 MG TABLET. PO SCH (20:49)
--- NOTE | 2020-05-12 20:58 | DISCH ---
DISCHARGE INSTRUCTIONS Condition on Discharge Condition on Discharge: Stable Activity After Discharge Activity Instructions for Disc: Other, see below (avoid reaching behind your back) Exercise Instruction after Dis: Exercise per therapy Weight Bearing Status after Di: As tolerated Diet after Discharge Diet after Discharge: Regular Wound Incision Care Wound/Incision Care: Do not change dressing (call if dressing is saturated or leaking) Community/Resources/Services Services at Discharge: PT EVALUATE & TREAT Contacting the DRChrystal after DC Call your doctor for: Concerns you may have Follow-Up Follow up with: Dr Johnson 2 weeks postop TERRELL JOHNSON MD May 12, 2020 20:58
--- NOTE | 2020-05-12 21:31 | NUR ---
Anxious to go home. Concerned about the financial aspect of spending another night. Dr. Johnson here. OK to discharge. Prescription for Percet.
--- NOTE | 2020-05-12 21:45 | NUR ---
Left external jugular and right foot saline locks DC'd. Bandages applied.
--- NOTE | 2020-05-13 00:18 | DS ---
DATE OF DISCHARGE: 05/12/2020 PRINCIPAL DIAGNOSIS: Posttraumatic osteoarthritis with rotator cuff arthropathy, right shoulder. PROCEDURE: Right reverse shoulder arthroplasty and biceps tenodesis. DISPOSITION: Home with outpatient physical therapy. Restrictions include standard reverse shoulder arthroplasty precautions. Do not reach behind his back. May do fine motor use with the arm and lift and stretch as instructed with physical therapy exercises. Sling for comfort. May shower as long as Aquacel dressing is intact and not leaking. Call if it is saturated, any redness, uncontrolled pain, drainage or other concerns. Follow up with Dr. Johnson in 2 weeks postoperatively. BRIEF DESCRIPTION OF HOSPITAL COURSE: The patient underwent an uncomplicated right reverse shoulder arthroplasty and postoperatively remained medically stable. He underwent adjustment of his pain medications and was well controlled on Percocet 5 and was instructed by physical therapy and was discharged home in stable condition. DISCHARGE MEDICATIONS: Percocet 5/325 one p.o. every 4 hours p.r.n. pain, dispensed #50. Resume preoperative medications. TERRELL JOHNSON MD DR: HARI/carter JOB#: [id number] / [id number] PAULINO Henriquez MD
--- NOTE | 2020-05-13 14:07 | PATHOLOGY ---
[facility] Accession Number: [id number] . 01 Material submitted: . shoulder - RIGHT HUMERAL HEAD. Modifiers: right . 01 Clinical history: . POST TRAUMATIC OSTEOARTHRITIS RIGHT SHOULDER, RIGHT REVERSE SHOULDER ARTHROPLASTY . 02 Diagnosis: Humeral head, right reverse shoulder arthroplasty: - Focally advanced degenerative arthritis. (JPM/db; 05/13/2020) LBQ 05/13/2020 1146 Local . 02 Electronically signed: . Dany Manley MD, Pathologist NPI- [id number] . 01 Gross description: . The specimen is received in formalin, labeled "Omero Dodson, right humeral head" and consists of a segment of bone with articular surface measuring 5.3 x 4.9 x 1.1 cm. The articular surface is roughened silva-brown and granular with focal eburnation. A senior patient account representative section is submitted in A1 following decalcification. (SDY; 05/12/2020) SYU/SYU 05/13/2020 1144 Local . 02 Pathologist provided ICD-10: M19.111 . 02 CPT . 824240, [id number] Specimen Comment: A courtesy copy of this report has been sent to [phone], [phone] Specimen Comment: [id number] Specimen Comment: Report sent to / DR JOY Performed at: 01 [facility] [address], [place] [id number] MD Ced Joshua MD Phone: [phone] Performed at: 02 [facility] [address] [place], [place] [id number] MD Dany Manley MD Phone: [phone]
== END 2020-05-12 22:30 | disposition home or self-care (01) | DRG 483 ==
LOC: SURG 07:54 → 4 NORTH 14:40 → OBSVTOIN 14:40
PROVIDERS: ADMIT Orthopaedic Surgery; ATTEND Orthopaedic Surgery
PROC: 0RRJ00Z Replacement of Right Shoulder Joint with Reverse Ball and Socket Synthetic Substitute, Open Approach (ICD-10-PCS; principal; 2020-05-11 10:00)
DX: M19.011 Primary osteoarthritis, right shoulder (principal); E11.40 Type 2 diabetes mellitus with diabetic neuropathy, unspecified; I10 Essential (primary) hypertension; F32.9 Major depressive disorder, single episode, unspecified; R29.818 Other symptoms and signs involving the nervous system; Z82.49 Family history of ischemic heart disease and other diseases of the circulatory system; Z83.3 Family history of diabetes mellitus; Z86.73 Personal history of transient ischemic attack (TIA), and cerebral infarction without residual deficits; Z87.891 Personal history of nicotine dependence; Z95.1 Presence of aortocoronary bypass graft
CPT/HCPCS: 36415; 73030; 82962; 86850; 86900; 86901; 88304; 88311; 94640; J0690; J1100; J1815; J2250; J2405; J2704; J2710; J3010; J3490; J7030; J7042; J7060; 97530-GP; 97535-GO; A4565; C1769; G0378; J7613